=== PATIENT | female | born 1990 | race Caucasian/White ===

== ENCOUNTER 2018-01-01 15:51 | Emergency (ER) | payer BC, OTHER ==
[2018-01-01] MEDS: IPRATRPIUM/ALBUTEROL 0.5/2.5MG 3 ML NEBU. NEB (16:29)
[2018-01-01] MEDS: predniSONE 10 MG TABLET PO (16:30)
== END 2018-01-01 17:23 | disposition home or self-care (01) ==
LOC: ER 15:51
DX: J45.901 Unspecified asthma with (acute) exacerbation (principal); H92.01 Otalgia, right ear; H92.02 Otalgia, left ear; Z87.891 Personal history of nicotine dependence; Z88.5 Allergy status to narcotic agent
CPT/HCPCS: 71046; 94640; 99284; J7512; J7620